=== PATIENT | female | born 2000 | race Caucasian/White ===

== ENCOUNTER 2018-01-11 09:10 | Emergency (ER) | payer OTHER ==
[~2018-01-11] VITALS: Ht 160 cm; Wt 77.3 kg
[2018-01-11 10:43] LABS: HEMATOCRIT 41.3 % (36.0-46.0); HEMOGLOBIN 14.2 G/DL (11.9-15.5); MCH 30.1 PG (29.0-34.0); MCHC 34.4 G/DL (30.0-36.0); MCV 87.7 FL (83-99); RBC DIS.WIDTH-CV 11.6 % (11.8-14.6); RBC DIS.WIDTH-SD 37.9 % (39-53); RED BLOOD COUNT 4.71 M/uL (3.80-5.20)
[2018-01-11 10:55] LABS: ALBUMIN 4.3 g/dL (3.2-4.8); CHLORIDE 106 mEq/L (99-109); POTASSIUM 4.2 mEq/L (3.7-5.4); SODIUM 139 mEq/L (136-147)
[2018-01-11 10:58] LABS: GLUCOSE 90 mg/dL (70-99); TOTAL PROTEIN 6.9 g/dL (6.4-8.3)
[2018-01-11 11:00] LABS: TOTAL BILIRUBIN 0.5 mg/dL (0.0-1.0)
[2018-01-11 11:01] LABS: ALKALINE PHOSPHATASE 93 IU/L (3-129); CREATININE 0.8 mg/dL (0.6-1.3); GFR ESTIMATE (CALCULATED) > 59 mL/min/
[2018-01-11 11:02] LABS: UREA NITROGEN (BUN) 11 mg/dL (9-23)
[2018-01-11 11:03] LABS: AST (GOT) 14 IU/L (2-34)
[2018-01-11 11:04] LABS: ALT (GPT) 14 IU/L (3-49)
[2018-01-11 11:11] LABS: QUANTITATIVE HCG < 4.0 MIU/ML
[2018-01-11 11:52] LABS: PLAT.SUFFICIENCY ADEQUATE; PLATELET COUNT 203 K/uL (156-360)
[2018-01-11 12:23] LABS: APPEARANCE CLEAR ((CLEAR)); BILIRUBIN NEGATIVE; BLOOD MODERATE; COLOR STRAW ((YELLOW)); GLUCOSE (STRIP) NEGATIVE; KETONES 5; LEUKOCYTES TRACE; NITRITE NEGATIVE; PROTEIN (STRIP) NEGATIVE; SPECIFIC GRAVITY 1.008 (1.000-1.030); UROBILINOGEN 0.2 MG/DL (0.2-1.0)
[2018-01-11 12:50] LABS: BACTERIA NONE SEEN /HPF; EPITHELIAL CELLS RARE /HPF; MUCUS TRACE /LPF; RED BLOOD CELLS 0-5 /HPF (0-5); UCUL ADDED? NO; WHITE BLOOD CELLS 0-5 /HPF (0-5)
[2018-01-11 13:34] VITALS: BP 112/51
== END 2018-01-11 13:34 | disposition home or self-care (01) ==
LOC: EME 09:10
DX: R51 Headache (principal); G43.909 Migraine, unspecified, not intractable, without status migrainosus
CPT/HCPCS: 80053; 81003; 84702; 85027; 99281; 99284; J0780; J7030

== ENCOUNTER 2018-01-12 23:28 | Emergency (ER) | payer OTHER ==
[~2018-01-12] VITALS: Ht 160 cm; Wt 74.5 kg
[2018-01-13 00:09] LABS: HEMATOCRIT 40.6 % (36.0-46.0); HEMOGLOBIN 14.8 G/DL (11.9-15.5); MCHC 36.5 G/DL (30.0-36.0); MCV 84.9 FL (83-99); RBC DIS.WIDTH-CV 11.5 % (11.8-14.6); RBC DIS.WIDTH-SD 35.3 % (39-53); RED BLOOD COUNT 4.78 M/uL (3.80-5.20); WHITE BLOOD COUNT 15.4 K/uL (4.1-10.2)
[2018-01-13 00:28] LABS: ALBUMIN 4.7 g/dL (3.2-4.8); CHLORIDE 105 mEq/L (99-109); POTASSIUM 3.4 mEq/L (3.7-5.4)
[2018-01-13 00:29] LABS: SODIUM 139 mEq/L (136-147)
[2018-01-13 00:31] LABS: GLUCOSE 129 mg/dL (70-99); TOTAL PROTEIN 7.7 g/dL (6.4-8.3)
[2018-01-13 00:34] LABS: ALKALINE PHOSPHATASE 97 IU/L (3-129); CREATININE 0.8 mg/dL (0.6-1.3); GFR ESTIMATE (CALCULATED) > 59 mL/min/
[2018-01-13 00:35] LABS: UREA NITROGEN (BUN) 14 mg/dL (9-23)
[2018-01-13 00:36] LABS: AST (GOT) 16 IU/L (2-34); TOTAL BILIRUBIN 0.7 mg/dL (0.0-1.0)
[2018-01-13 00:37] LABS: ALT (GPT) 16 IU/L (3-49)
[2018-01-13 00:38] LABS: LIPASE 11 U/L (1.0-51.0)
[2018-01-13 00:45] LABS: QUANTITATIVE HCG < 4.0 MIU/ML
[2018-01-13 01:38] LABS: PLAT.SUFFICIENCY ADEQUATE; PLATELET COUNT 255 K/uL (156-360)
[2018-01-13] MEDS ORDERED: PHENERGAN25 MG PR (01:50)
[2018-01-13] MEDS ORDERED: ZOFRAN ODT4 MG PO (01:50)
[2018-01-13 02:54] VITALS: BP 118/60
[2018-01-13] MEDS ORDERED: PEPCID20 MG PO (19:17)
== END 2018-01-13 02:57 | disposition home or self-care (01) ==
LOC: EME 23:28
PROVIDERS: Physician Assistant
DX: R11.2 Nausea with vomiting, unspecified (principal)
CPT/HCPCS: 74177; 80053; 81003; 83690; 84702; 85027; 99281; 99285; J1200; J1630; J1885; J2765; J7030; S0028

== ENCOUNTER 2018-01-13 14:53 | Emergency (ER) | payer OTHER ==
[~2018-01-13] VITALS: Ht 160 cm; Wt 73.8 kg
[~2018-01-13 14:53] MED LIST: PHENERGAN25 MG PR; ZOFRAN ODT4 MG PO
[2018-01-13 17:02] LABS: HEMATOCRIT 36.8 % (36.0-46.0); HEMOGLOBIN 13.2 G/DL (11.9-15.5); MCH 30.3 PG (29.0-34.0); MCHC 35.9 G/DL (30.0-36.0); MCV 84.6 FL (83-99); PLATELET COUNT 221 K/uL (156-360); RBC DIS.WIDTH-CV 11.7 % (11.8-14.6); RBC DIS.WIDTH-SD 35.7 % (39-53); RED BLOOD COUNT 4.35 M/uL (3.80-5.20); WHITE BLOOD COUNT 18.6 K/uL (4.1-10.2)
[2018-01-13 17:15] LABS: ALBUMIN 4.1 g/dL (3.2-4.8); CHLORIDE 108 mEq/L (99-109); POTASSIUM 3.7 mEq/L (3.7-5.4); SODIUM 137 mEq/L (136-147)
[2018-01-13 17:17] LABS: GLUCOSE 135 mg/dL (70-99)
[2018-01-13 17:18] LABS: TOTAL PROTEIN 6.9 g/dL (6.4-8.3)
[2018-01-13 17:19] LABS: TOTAL BILIRUBIN 0.6 mg/dL (0.0-1.0)
[2018-01-13 17:21] LABS: ALKALINE PHOSPHATASE 90 IU/L (3-129); CREATININE 0.7 mg/dL (0.6-1.3); GFR ESTIMATE (CALCULATED) > 59 mL/min/
[2018-01-13 17:22] LABS: UREA NITROGEN (BUN) 9 mg/dL (9-23)
[2018-01-13 17:23] LABS: AST (GOT) 14 IU/L (2-34)
[2018-01-13 17:24] LABS: ALT (GPT) 15 IU/L (3-49); LIPASE 7 U/L (1.0-51.0)
[2018-01-13 18:21] LABS: APPEARANCE SL.HAZY ((CLEAR)); BILIRUBIN NEGATIVE; BLOOD NEGATIVE; COLOR YELLOW ((YELLOW)); GLUCOSE (STRIP) 50; KETONES 80; LEUKOCYTES TRACE; NITRITE NEGATIVE; PROTEIN (STRIP) 30; SPECIFIC GRAVITY 1.029 (1.000-1.030); UROBILINOGEN 0.2 MG/DL (0.2-1.0)
[2018-01-13 18:30] LABS: AMPHETAMINE NEGATIVE (500 ng/mL); BARBITURATES NEGATIVE (200 ng/mL); BENZODIAZEPINES NEGATIVE (150 ng/mL); BUPRENORPHINE NEGATIVE (10 ng/mL); COCAINE NEGATIVE (150 ng/mL); METHADONE NEGATIVE (200 ng/mL); METHAMPHETAMINE NEGATIVE (500 ng/mL); OPIATES (MORPHINE) NEGATIVE (100 ng/mL); OXYCODONE NEGATIVE (100 ng/mL); PHENCYCLIDINE NEGATIVE (25 ng/mL); PROPOXYPHENE NEGATIVE (300 ng/mL); THC CANNABINOIDS PRESUMPTIVE POSITIVE (50 ng/mL); TRICYCLIC ANTIDEPRESSANTS NEGATIVE (300 ng/mL)
[2018-01-13 18:38] LABS: BACTERIA NONE SEEN /HPF; EPITHELIAL CELLS 1+ /HPF; MUCUS TRACE /LPF; UCUL ADDED? YES
[2018-01-13] MEDS ORDERED: PEPCID20 MG PO (19:17)
[2018-01-13 19:51] VITALS: BP 109/53
== END 2018-01-13 20:10 | disposition home or self-care (01) ==
LOC: EME 14:53
PROVIDERS: Physician Assistant
DX: R11.10 Vomiting, unspecified (principal); F12.90 Cannabis use, unspecified, uncomplicated; R07.9 Chest pain, unspecified
CPT/HCPCS: 71046; 80053; 81003; 83690; 84999; 85027; 87086; 99281; 99284; C9113; J1885; J2405; J2765; J7030